=== PATIENT | male | born 1970 | race African-American/Black ===

== ENCOUNTER 2022-07-17 12:02 | Emergency (ER) | payer MEDICAID ==
[~2022-07-17] VITALS: Ht 190.5 cm; Wt 100.2 kg
[2022-07-17 12:12] VITALS: BP 133/76
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
[2022-07-17] MEDS ORDERED: NACL 0.9% 1,000 ML IV SCH (13:05)
--- NOTE | 2022-07-17 13:27 | NUR ---
called pt cx 3 no answer
--- NOTE | 2022-07-17 14:18 | NUR ---
PT. CALLED IN LOBBY, NOT FOUND, CHECKED BATHROOMS, CHECKED OUTSIDE ER AND PT. NOT FOUND. NOTIFIED.
--- NOTE | 2022-07-17 14:48 | NUR ---
PT. CALLED IN LOBBY, NOT FOUND, CHECKED BATHROOMS, CHECKED OUTSIDE ER AND PT. NOT FOUND. NOTIFIED.
--- NOTE | 2022-07-17 15:00 | NUR ---
PT. CALLED IN LOBBY, NOT FOUND, CHECKED BATHROOMS, CHECKED OUTSIDE ER AND PT. NOT FOUND. NOTIFIED.
[2022-07-17] MEDS ORDERED: CEPH-588 PO (20:34)
[2022-07-17] MEDS ORDERED: [UNRECOGNIZED DRUG - CODE] TP (20:34)
== END 2022-07-17 13:27 | disposition left against medical advice (07) ==
LOC: MED 12:02
DX: M79.671 Pain in right foot (principal); Z79.899 Other long term (current) drug therapy
CPT/HCPCS: 99281

== ENCOUNTER 2022-07-17 15:39 | Emergency (ER) | payer MEDICAID ==
[~2022-07-17] VITALS: Ht 190.5 cm; Wt 102.1 kg
[2022-07-17 16:18] VITALS: BP 107/64
--- NOTE | 2022-07-17 16:25 | NUR ---
AMBULATED TO BED IN NO DISTRESS. The patient's care was reviewed and supervised by TREVER IGNACIO RN.
[2022-07-17] MEDS ORDERED: NACL 0.9% 1,000 ML IV SCH (16:40)
[2022-07-17 17:42] LABS: HEMATOCRIT 36.7 % (36-52); MEAN CORPUSCULAR HEMOGLOBIN 28 pg (27-31); MEAN CORPUSCULAR HGB CONC 33 g/dL (33-37); MEAN CORPUSCULAR VOLUME 84.9 fL (80-94); PLATELET COUNT (AUTO) 272 K/uL (140-450); RED BLOOD CELL COUNT(AUTO) 4.33 MIL/uL (4.20-6.10); WHITE BLOOD COUNT (AUTO) 6.7 K/uL (4.8-10.8)
[2022-07-17 17:49] LABS: ALBUMIN 3.7 g/dL (3.4-5.0); ANION GAP 14.5 (8-16); CARBON DIOXIDE 26.1 mmol/L (21-32); CREATININE 1.1 mg/dL (0.6-1.3); POTASSIUM 3.6 mmol/L (3.5-5.1); TOTAL BILIRUBIN 0.9 mg/dL (0.0-1.0)
[2022-07-17] MEDS ORDERED: PIPERACILLIN/TAZOBACTAM 3.375 GM in DEXTROSE 5% 50 ML IV ONE (18:00)
[2022-07-17] MEDS ORDERED: PIPERACILLIN/TAZOBACTAM 3.375 GM VIAL IV ONE (18:06)
[2022-07-17 18:18] LABS: EOSINOPHILS % (MANUAL) 2 % (0-4); LYMPHOCYTES % (MANUAL) 55 % (20-46); MONOCYTES % (MANUAL) 12 % (5-12)
[2022-07-17] MEDS ORDERED: NACL 0.9% 1,000 ML IV ONE (18:35)
--- NOTE | 2022-07-17 19:22 | NUR ---
Report given to JAMES Erazo for transfer of care.
[2022-07-17 20:09] LABS: BARBITURATE, URINE NEGATIVE ng/ml (NEG <=200); BENZODIAZEPINE, URINE POSITIVE ng/mL (NEG <=200); CANNABINOID, URINE NEGATIVE ng/mL (NEG <=50); COCAINE, URINE NEGATIVE ng/mL (NEG <=300); PHENCYCLIDINE SCREEN,URINE NEGATIVE ng/mL (NEG <=25)
[2022-07-17 20:10] LABS: OPIATE, URINE NEGATIVE ng/mL (NEG <=2000)
--- NOTE | 2022-07-17 20:18 | NUR ---
patient ambulated to the bathroom with a steady gait complaints of no pain. ER MD made aware
[2022-07-17] MEDS ORDERED: CEPH-588 PO (20:34)
[2022-07-17] MEDS ORDERED: [UNRECOGNIZED DRUG - CODE] TP (20:34)
--- NOTE | 2022-07-17 20:38 | NUR ---
Patient discharged by Dr. Hurley.
== END 2022-07-17 20:38 | disposition home or self-care (01) ==
LOC: MED 15:39
DX: L03.115 Cellulitis of right lower limb (principal); F19.10 Other psychoactive substance abuse, uncomplicated; Z79.899 Other long term (current) drug therapy
CPT/HCPCS: 36415; 73630; 80053; 80305; 83605; 85025; 86140; 87040; 96361; 96365; 99284; J2543; J7030; Q0092